=== PATIENT | female | born 1970 | race Caucasian/White ===

== ENCOUNTER 2021-07-28 10:05 | Emergency (ER) | payer OTHER ==
[~2021-07-28] VITALS: Ht 160 cm; Wt 56.2 kg
[~2021-07-28 10:05] MED LIST: INSU100S22 SUBQ; INSU100S54 SC; METF500T PO
[2021-07-28 10:20] VITALS: BP 123/82
--- NOTE | 2021-07-28 10:20 | NUR ---
51 y/o Female BIBA for SOB and found hyperglycemic 591 on scene and after 500 cc given and upon recheck was found to be 490. BG in room 501. PmHx: Hypotension, COVID 19, DM
--- NOTE | 2021-07-28 10:20 | NUR ---
Pt taken to room 10 by EMS.
[2021-07-28] MEDS ORDERED: NACL 0.9% 1,000 ML IV ONE (10:55)
[2021-07-28 11:41] LABS: BASOPHILS % (AUTO) 0.6 % (0.0-2.0); EOSINOPHILS % (AUTO) 0.5 % (0.0-4.0); HEMOGLOBIN 12.2 g/dL (12.0-16.0); LYMPHOCYTES # (AUTO) 0.9 K/uL (2.5-16.5); MONOCYTES # (AUTO) 0.2 K/uL (0.8-1.0); WHITE BLOOD COUNT (AUTO) 5.2 K/uL (4.8-10.8)
[2021-07-28 11:46] LABS: LYMPHOCYTES % (AUTO) 17.9 % (20.5-51.1); MEAN CORPUSCULAR HEMOGLOBIN 26 pg (27-31); MEAN CORPUSCULAR HGB CONC 32 g/dL (33-37); MONOCYTES % (AUTO) 4.2 % (1.7-9.3); NEUTROPHILS % (AUTO) 76.8 % (42.2-75.2); PLATELET COUNT (AUTO) 224 K/uL (140-450); RED BLOOD CELL COUNT(AUTO) 4.76 MIL/uL (4.20-5.40); RED CELL DISTRIBUTION WIDTH 17.2 % (11.6-13.7)
--- NOTE | 2021-07-28 12:10 | NUR ---
Iliana lynn in [facility] - 07/28/21 at 1332 by FLORES Assumed care of pt at this time
[2021-07-28 12:11] LABS: ANION GAP 20.1 (8-16); CARBON DIOXIDE 20.8 mmol/L (21-32); CREATININE 0.6 mg/dL (0.6-1.3); POTASSIUM 3.9 mmol/L (3.5-5.1)
[2021-07-28] MEDS ORDERED: KETOROLAC 30 MG/ML VIAL IVP ONE (12:15)
--- NOTE | 2021-07-28 12:35 | NUR ---
Pt report given to Kam MARTINEZ. Transfer of care at this time.
--- NOTE | 2021-07-28 13:08 | NUR ---
PATIENT DISCONNECTED FROM MONITOR, AMBULATED TO RESTROOM WITH STEADY GAIT.
--- NOTE | 2021-07-28 13:10 | NUR ---
Assumed care of pt at this time.
[2021-07-28] MEDS ORDERED: INSULIN REGULAR, HUMAN 100 UNIT/ML VIAL IVP ONE (13:25)
[2021-07-28] MEDS ORDERED: CIPR500T4 PO (13:32)
[2021-07-28] MEDS ORDERED: IBUP-2213 PO (13:32)
[2021-07-28] MEDS ORDERED: ONDA8TAB87 PO (13:32)
[2021-07-28 13:38] VITALS: BP 120/79
--- NOTE | 2021-07-28 14:02 | NUR ---
Patient discharged with v/s stable. Written and verbal after care instructions ABOUT UTI AND ABDOMINAL PAIN given and explained. Patient alert, oriented and verbalized understanding of instructions. Ambulatory with steady gait. All questions addressed prior to discharge. ID band removed. Patient advised to follow up with PMD. Rx of CIPRO, MOTRIN,AND ZOFRAN given. Patient educated on indication of medication including possible reaction and side effects. Opportunity to ask questions provided and answered.
[2021-07-28 15:19] LABS: ALBUMIN 2.9 g/dL (3.4-5.0); ANION GAP 24.7 (8-16); CARBON DIOXIDE 17.3 mmol/L (21-32); CREATININE 0.6 mg/dL (0.6-1.3); TOTAL BILIRUBIN 0.5 mg/dL (0.0-1.0)
== END 2021-07-28 14:02 | disposition home or self-care (01) ==
LOC: MED 10:05
DX: E11.65 Type 2 diabetes mellitus with hyperglycemia (principal); N39.0 Urinary tract infection, site not specified; I10 Essential (primary) hypertension
CPT/HCPCS: 36415; 74176; 80048; 80053; 81002; 81025; 83690; 85025; 96361; 96374; 96375; 99284; J1815; J1885; J7030